=== PATIENT | female | born 1975 | race American Indian/Alaskan Native ===

== ENCOUNTER 2018-09-26 08:10 | Inpatient (IN) | payer MEDICARE ==
[2018-09-24 11:18] LABS: Basophils % (Auto) 0.9 % (0.0-1.8); Eosinophils # (Auto) 0.2 K/mm3 (0.0-0.4); Eosinophils % (Auto) 4.1 % (0.0-4.3); Hematocrit 27.4 % (30.3-42.9); Hemoglobin 9.1 gm/dl (10.1-14.3); Lymphocytes # (Auto) 2.2 K/mm3 (1.2-5.4); Lymphocytes % (Auto) 49.3 % (13.4-35.0); Mean Corpuscular HGB Conc 33 % (30-34); Mean Corpuscular Volume 88 fl (79-97); Monocytes # (Auto) 0.4 K/mm3 (0.0-0.8); Monocytes % (Auto) 8.8 % (0.0-7.3); Platelet Count 268 K/mm3 (140-440); Red Cell Distribution Width 17.5 % (13.2-15.2)
--- NOTE | 2018-09-24 11:34 | Anesthesia Consultation ---
Anesthesia Consult and Med Hx Date of service: 09/24/18 - Airway Anesthetic Teeth Evaluation: Poor (multiple missing), Chipped ROM Head & Neck: Adequate Mental/Hyoid Distance: Adequate Mallampati Class: Class II Intubation Access Assessment: Probably Good - Pulmonary Exam CTA: Yes - Cardiac Exam Cardiac Exam: RRR (click murmur c/w MVP) - Pre-Operative Health Status ASA Pre-Surgery Classification: ASA3 Proposed Anesthetic Plan: General Nerve Block: discussed TAP block - Pulmonary Hx Smoking: No Hx Asthma: Yes Hx Respiratory Symptoms: No SOB: No COPD: No Hx Sleep Apnea: No - Cardiovascular System Hx Hypertension: No Hx Coronary Artery Disease: No - Central Nervous System Hx Psychiatric Problems: No - Gastrointestinal Hx Gastroesophageal Reflux Disease: Yes (s/p Helen X 3) - Hematic Hx Anemia: Yes - Other Systems Hx Cancer: No - Additional Comments Anesthesia Medical History Comments: GA for hernia repair (X2) and Helen (x3), MVP with normal EF and mild TR on Echo 03/2018. prior transfusion X2 in 2016;. likely needs RSI given esophageal surgery and recurrent GERD
--- NOTE | 2018-09-25 14:22 | History and Physical Report ---
History of Present Illness Date of examination: 09/24/18 Date of admission: 09/26/2018 Chief complaint: dysfunctional bleeding History of present illness: 43y/o with dysfunctional uterine bleeding and uterine fibroids. The patient reports pain with her menses. Ultrasound findings suggest small leiomyomas. The patient desires surgical management. Past History Past Medical History: asthma, GERD Past Surgical History: other (Helen fundoplication; hernia repair, tubal ligation) Social history: - Obstetrical History : 3 Para: 3 Hx # Term Pregnancies: 3 Number of Pregnancies: 0 Spontaneous Abortions: 0 Induced : 0 Number of Living Children: 3 Medications and Allergies Allergies Allergy/AdvReac Type Severity Reaction Status Date / Time clams Allergy Unknown Verified 09/20/18 16:01 kiwi Allergy Anaphylaxis Verified 09/20/18 16:01 ez Allergy Anaphylaxis Verified 09/20/18 16:01 methylprednisolone sodium Allergy Anaphylaxis Verified 09/20/18 16:01 succinate [From Solu-Medrol] peach Allergy Anaphylaxis Verified 09/20/18 16:01 peanut Allergy Anaphylaxis Verified 09/20/18 16:01 scallops Allergy Unknown Verified 09/20/18 16:01 sesame seed Allergy Unknown Verified 09/20/18 16:01 shrimp Allergy Unknown Verified 09/20/18 16:01 soybean Allergy Unknown Verified 09/20/18 16:01 strawberry Allergy Anaphylaxis Verified 09/20/18 16:01 walnut Allergy Unknown Verified 09/20/18 16:01 watermelon Allergy Unknown Verified 09/20/18 16:01 wheat Allergy Unknown Verified 09/20/18 16:01 cod fish Allergy Unknown Uncoded 09/20/18 16:01 egg white Allergy Unknown Uncoded 09/20/18 16:01 Home Medications Medication Instructions Recorded Confirmed Last Taken Type Albuterol Sulfate [Ventolin Hfa] 2 puff IH Q4H PRN 09/20/18 09/20/18 Unknown History Cetirizine HCl [ZyrTEC] 10 mg PO DAILY 09/20/18 09/20/18 Unknown History Fluticasone/Salmeterol [Advair 2 puff IH BID 09/20/18 09/20/18 Unknown History 500-50 Diskus] Ranitidine HCl [Zantac 150 MG TAB] 150 mg PO DAILY PRN 09/20/18 09/20/18 Unknown History Review of Systems All systems: negative Genitourinary: vaginal bleeding, pelvic pain - Vital Signs Vital signs: Vital Signs Temp Pulse Resp BP Pulse Ox 97.6 F 69 20 122/80 99 09/24/18 10:50 09/24/18 10:50 09/24/18 10:50 09/24/18 10:50 09/24/18 10:50 Temp Pulse Resp BP Pulse Ox 97.6 F 69 20 122/80 99 09/24/18 10:50 09/24/18 10:50 09/24/18 10:50 09/24/18 10:50 09/24/18 10:50 - Physical Exam Breasts: Positive: deferred Cardiovascular: Regular rate Lungs: Positive: Clear to auscultation Abdomen: Positive: other (multiple surgical incisions) Results Result Diagrams: 09/24/18 11:00 All other labs normal. Assessment and Plan - Patient Problems (1) DUB (dysfunctional uterine bleeding) Status: Acute Plan to address problem: will proceed with a PATRICIA (2) Dysmenorrhea Status: Acute (3) Anemia Status: Acute (4) Leiomyoma Status: Acute
[~2018-09-26 08:10] MED LIST: ANCEF/STERILE WATER 2 GM/20 ML 2 GM/20 ML SYRINGE IV NR; NACL 0.9% 500 ML 500 ML IV ONE
[2018-09-26] MEDS ORDERED: NACL 0.9% 1000 ML 1,000 ML ONE ×2 (09:06→14:05)
[2018-09-26] MEDS ORDERED: DECADRON ONE ×2 (09:32→10:43)
[2018-09-26] MEDS ORDERED: MARCAINE-EPI/PF 0.5%-1:200,000 INFILTRATI ONE (09:32)
[2018-09-26] MEDS ORDERED: VERSED ONE (09:33)
[2018-09-26] MEDS ORDERED: NEURONTIN ONE (09:33)
[2018-09-26] MEDS ORDERED: PEPCID ONE (09:34)
[2018-09-26] MEDS ORDERED: NACL 0.9% 1000 ML 1,000 ML IV SCH (10:00)
[2018-09-26] MEDS ORDERED: NACL 0.9% 500 ML 500 ML IV NR (10:11)
[2018-09-26] MEDS ORDERED: ACD-A 500 ML IV ONE (10:13)
[2018-09-26] MEDS ORDERED: XYLOCAINE MPF 2% ONE (10:43)
[2018-09-26] MEDS ORDERED: ROBINUL ONE (10:43)
[2018-09-26] MEDS ORDERED: DILAUDID ONE ×2 (10:43→13:59)
[2018-09-26] MEDS ORDERED: ZEMURON IV ONE (10:43)
[2018-09-26] MEDS ORDERED: BLOXIVERZ ONE (10:43)
[2018-09-26] MEDS ORDERED: ZOFRAN ONE (10:43)
[2018-09-26] MEDS ORDERED: DIPRIVAN 10 MG/ML IV ONE (10:43)
[2018-09-26] MEDS ORDERED: NACL 0.9% IR ONE (11:59)
--- NOTE | 2018-09-26 13:00 | Operative Report ---
Operative Report Operative Report: Date: 09/26/2018 Preoperative diagnosis: Dysfunctional uterine bleeding; anemia Postoperative diagnosis: Same as above Procedure: Total abdominal hysterectomy Surgeon: Evette Hsu M.D. Pattern Vault Clerk: Sharath Vines Anesthesia: Gen. endotracheal anesthesia Estimated blood loss: 200 mL Urine output: 250 mL IV fluids: 1400 mL Indication: 43-year-old with a history of dysfunctional uterine bleeding. The patient had developed anemia secondary to her menorrhagia has elected to undergo definitive surgical management. Pathology: Uterus, cervix Findings: Mildly enlarged uterus with normal tubes and ovaries bilaterally Procedure: The risk and benefits and indications of the procedure were reviewed with the patient and informed consent was obtained the patient was taken to the operating room. The patient was placed in supine position and given general anesthesia. The patient was prepped and draped in a normal sterile fashion. A Pfannenstiel skin incision was made down to the layer of the fascia which was nicked in the midline and extended laterally with the Bovie cautery. Superior aspect of the rectus fascia was grasped with Washington clamps 2 and the rectus muscles off sharply. This was performed in an inferior fashion as well. The rectus muscle in the midline and the peritoneum entered bluntly. The pelvis was examined with the following findings default value. An O'Carlos-O'Penn retractor was placed into the incision and the bowel packed away with moist laparotomy sponges. 2 Velasquez clamps were placed on the cornua and used for retraction. The round ligaments on both sides were clamped transected and suture ligated with 0 Vicryl. The anterior leaf of the broad ligament was then incised along the bladder reflection to the midline from both sides the bladder was then gently dissected off the lower uterine segment and the cervix with a sponge stick. The infundibulopelvic ligament on both sides were doubly clamped transected and suture ligated with 0 Vicryl. Hemostasis was assured. The uterine vessels were then skeletonized bilaterally clamped with Richard clamps transected and suture ligated with 0 Vicryl. The uterosacral ligaments were clamped similarly on both sides transected and suture ligated. The cervix and the uterus were then amputated from the vaginal cuff. The vaginal cuff edges were closed with a Richard fixation stitch and interrupted [id number] stitches in the midline with 0 Vicryl. The pelvis was then copiously irrigated with normal saline. Hemoblast was applied to the surgical sites. All laparotomy sponges and instruments were then removed from the abdomen. The peritoneum was then reapproximated with 3-0 Vicryl incorporating the rectus muscle. The fascia was then closed in 0 Vicryl in a running fashion. The skin was then reapproximated with 3-0 Monocryl on a Amrio needle subcuticular fas hion. Across the incision. Dermabond was applied to the incision. All sponge laps and needle counts were correct 2. Patient was then successfully extubated. The patient was taken to the recovery room in stable condition.
[2018-09-26] MEDS ORDERED: MORPHINE IV PRN (13:30)
[2018-09-26] MEDS ORDERED: TYLENOL PO PRN (13:30)
[2018-09-26] MEDS ORDERED: MORPHINE PCA 30MG/30ML IV SCH (14:00)
[2018-09-26] MEDS ORDERED: NARCAN 0.4 MG/1 ML IV PRN (14:00)
[2018-09-26] MEDS ORDERED: MILK OF MAGNESIA PO PRN (14:00)
[2018-09-26] MEDS ORDERED: ZOFRAN IV PRN (14:00)
[2018-09-26] MEDS: DILAUDID IV PRN ×2 (14:00→18:36)
[2018-09-26] MEDS: D5LR 1,000 ML IV SCH (16:31)
[2018-09-26] MEDS: TORADOL IV SCH (20:23)
[2018-09-26] MEDS ORDERED: AMBIEN PO PRN (22:00)
[2018-09-27] MEDS: TORADOL IV SCH ×2 (04:22→11:45)
[2018-09-27] MEDS: D5LR 1,000 ML IV SCH (04:23)
[2018-09-27 05:59] LABS: Hematocrit 25.4 % (30.3-42.9); Hemoglobin 8.4 gm/dl (10.1-14.3)
[2018-09-27] MEDS ORDERED: NARCAN 0.4 MG/1 ML IV PRN (07:57)
--- NOTE | 2018-09-27 08:34 | Progress Note ---
Assessment and Plan - Patient Problems (1) DUB (dysfunctional uterine bleeding) Current Visit: No Status: Acute Plan to address problem: possible side effects from Morphine will discontinue morphine continue O2 supplement until sats improve (2) Dysmenorrhea Current Visit: No Status: Acute (3) Anemia Current Visit: No Status: Acute (4) Leiomyoma Current Visit: No Status: Acute Subjective - Subjective Date of service: 09/27/18 Interval history: Patient experienced an episode of feeling lightheaded when attempting to ambulate. Patient slightly obtunded. O2 sats in mid 80's on RA. Possible effects of [employer] morphine. Patient given Narcan. O2 given with nasal canula. Sats now 96%. CXR pending. EKG normal Patient reports: dizzy ambulation, pain well controlled, no appetite normal, no voiding normally Objective - Vital Signs Latest vital signs: Vital Signs Temp Pulse Pulse Resp BP BP Pulse Ox 09/27/18 07:00 66 18 115/53 93 09/27/18 05:15 98.2 F 60 18 107/61 96 09/27/18 01:01 98.1 F 76 20 104/67 97 09/26/18 21:00 97.9 F 77 18 102/61 96 09/26/18 18:36 14 09/26/18 17:15 98.0 F 68 18 119/71 100 09/26/18 15:09 60 09/26/18 14:45 98.1 F 62 16 123/67 99 09/26/18 14:15 64 13 135/78 100 09/26/18 14:00 62 14 131/79 100 09/26/18 13:45 60 11 L 138/77 100 09/26/18 13:30 96.7 F L 62 11 L 132/73 100 09/26/18 13:25 68 13 136/77 100 09/26/18 13:21 67 14 151/90 100 09/26/18 10:18 18 09/26/18 10:06 76 14 131/69 100 09/26/18 10:01 78 12 141/71 100 09/26/18 09:56 82 15 142/79 100 09/26/18 09:55 97.8 F 74 18 134/76 96 09/26/18 09:51 90 13 147/78 100 09/26/18 08:55 97.8 F 74 18 134/76 96 Intake and Output 09/26/18 09/27/18 09/27/18 22:59 06:59 14:59 Intake Total 1120 Output Total 100 300 Balance -100 820 Intake: IV 1000 D5lr 1,000 ml @ 125 mls/ 1000 hr IV DIRECT STEFFANIE Rx#: [id number] Oral 120 Output: Urine 100 300 Indwelling Catheter 100 300 Other: Total, Intake Amount 120 Total, Output Amount 100 100 Voiding Method Indwelling Catheter # Voids Indwelling Catheter 1 - Exam Abdomen: Present: normal appearance, soft Incision: Present: normal, dry, intact - Labs Labs: Abnormal lab results 09/26/18 09/27/18 Range/Units 09:00 05:22 Hgb 8.4 L (10.1-14.3) gm/dl Hct 25.4 L (30.3-42.9) % Crossmatch See Detail
--- NOTE | 2018-09-27 09:13 | XRay Report ---
AP CHEST :09/27/18 CLINICAL: Dyspnea. One day status post PATRICIA. COMPARISON:None. FINDINGS: The lungs are underexpanded and clear except for very mild streaky opacities in the left lower lobe.The heart and vasculature are normal for the film technique. No tubes or lines. No pneumothorax. The bones and soft tissues are normal. IMPRESSION: Mild left lower lobe subsegmental atelectasis and otherwise normal.
[2018-09-27] MEDS ORDERED: PROVENTIL IH PRN (19:53)
[2018-09-27] MEDS: IBUPROFEN PO PRN (20:46)
[2018-09-27] MEDS: PERCOCET 5/325 PO PRN (22:09)
[2018-09-28] MEDS: BENADRYL PO PRN ×2 (00:23→23:43)
[2018-09-28] MEDS: PERCOCET 5/325 PO PRN ×3 (01:58→21:18)
[2018-09-28] MEDS ORDERED: PROVENTIL IH PRN (08:00)
--- NOTE | 2018-09-28 12:40 | Progress Note ---
Assessment and Plan A/P POD 2 s/p PATRICIA pulse ox normal atelectasis -increase incentive spirometry consider d/c home in am Subjective - Subjective Date of service: 09/28/18 Principal diagnosis: s/p PATRICIA Patient reports: appetite normal, voiding normally, pain well controlled, flatus, ambulating normally Objective - Vital Signs Latest vital signs: Vital Signs Temp Pulse Pulse Pulse Resp Resp BP 09/28/18 11:26 98.0 F 71 18 09/28/18 08:22 97.3 F L 76 18 09/28/18 07:15 72 18 09/28/18 01:58 20 09/28/18 01:38 98.5 F 20 104/56 09/27/18 22:09 18 09/27/18 21:48 98.4 F 18 113/56 09/27/18 20:46 20 09/27/18 20:15 75 20 09/27/18 20:12 09/27/18 20:05 74 20 09/27/18 19:30 66 09/27/18 16:10 98.1 F 71 18 09/27/18 12:52 98.2 F 68 18 BP Pulse Ox 09/28/18 11:26 116/83 96 09/28/18 08:22 118/57 97 09/28/18 07:15 09/28/18 01:58 09/28/18 01:38 09/27/18 22:09 09/27/18 21:48 09/27/18 20:46 09/27/18 20:15 99 09/27/18 20:12 99 09/27/18 20:05 09/27/18 19:30 09/27/18 16:10 117/54 97 09/27/18 12:52 112/74 99 Intake and Output 09/27/18 09/28/18 09/28/18 23:59 07:59 15:59 Output Total 1375 Balance -1375 Output: Urine 1375 Indwelling Catheter 575 Void 800 Other: Total, Output Amount 500 Voiding Method Toilet Toilet # Voids Void 1 - Exam Breasts: Present: normal Cardiovascular: Present: Regular rate, Normal S1 Lungs: Present: Clear to auscultation, Normal air movement Abdomen: Present: normal appearance, soft, normal bowel sounds. Absent: distention, tenderness, guarding Extremities: Present: normal Deep Tendon Reflex Grade: Normal +2 Incision: Present: normal, dry, intact, dressed
[2018-09-28] MEDS ORDERED: MYCOSTATIN TP SCH (18:00)
[2018-09-28] MEDS: IBUPROFEN PO PRN (23:41)
--- NOTE | 2018-09-29 03:51 | Progress Note ---
Assessment and Plan A/P POD 3 s/p PATRICIA pulse ox normal atelectasis -increase incentive spirometry s/p diarrhea resolved after dringking apple juice. d/c home f/u in 2 weeks Subjective - Subjective Date of service: 09/29/18 Principal diagnosis: s/p PATRICIA Patient reports: appetite normal, voiding normally, pain well controlled, flatus, ambulating normally Objective - Vital Signs Latest vital signs: Vital Signs Temp Pulse Pulse Resp BP BP Pulse Ox 09/28/18 23:59 98.7 F 67 18 101/56 97 09/28/18 23:41 18 09/28/18 21:18 20 09/28/18 20:00 74 20 09/28/18 19:53 98.0 F 77 16 116/66 95 09/28/18 15:59 98.3 F 74 18 116/60 94 09/28/18 11:26 98.0 F 71 18 116/83 96 09/28/18 08:22 97.3 F L 76 18 118/57 97 09/28/18 07:15 72 18 09/28/18 06:15 97.8 F 82 20 112/63 97 Intake and Output 09/28/18 09/28/18 09/29/18 15:59 23:59 07:59 Other: Voiding Method Toilet - Exam Breasts: Present: normal Cardiovascular: Present: Regular rate, Normal S1 Lungs: Present: Clear to auscultation, Normal air movement Abdomen: Present: normal appearance, soft, normal bowel sounds. Absent: distention, tenderness, guarding, hernia Uterus: Present: normal, firm, fundal height below umbilicus. Absent: bogginess, tenderness Extremities: Present: normal Incision: Present: normal, dry, intact
--- NOTE | 2018-09-29 03:52 | Discharge Summary ---
Providers - Providers Date of Admission: 09/26/18 08:10 Date of discharge: 09/29/18 Attending physician: MARY BRADEN Primary care physician: HARISH NG Hospitalization Reason for admission: other (scheuled patricia) Delivery: other (open PATRICIA) Procedure: other Episiotomy: none Laceration: none Incision: normal, dry, intact Condition at discharge: Good Disposition: DC-30 STILL A PATIENT Plan - Discharge Medications Prescriptions: Docusate Sodium [Colace] 100 mg PO BID PRN #60 capsule PRN Reason: Constipation Ibuprofen [Motrin] 800 mg PO Q8HR PRN #60 tablet PRN Reason: Pain, Mild (1-3) oxyCODONE /ACETAMINOPHEN [Percocet 5/325] 1 tab PO Q6HR PRN #30 tablet PRN Reason: Pain - Provider Discharge Summary Additional instructions: [] Smoking cessation referral if applicable(refer to patient education folder for contact #) [] Refer to [facility]'s [facility] Booklet Call your doctor immediately for: * Fever > 100.5 * Heavy vaginal bleeding ( >1 pad per hour) * Severe persistent headache * Shortness of breath * Reddened, hot, painful area to leg or breast * Drainage or odor from incision. * Keep incision clean and dry at all times and follow doctor's instructions regarding bathing/showering - Follow up plan Follow up: HARISH NG MD [Primary Care Provider] - 7 Days
[2018-09-29] MEDS: PERCOCET 5/325 PO PRN (04:07)
[2018-09-29 09:19] VITALS: BP 98/59
[2018-09-29] MEDS: IBUPROFEN PO PRN (10:30)
== END 2018-09-29 13:10 | disposition home or self-care (01) | DRG 742 ==
LOC: 3A 08:10 → EDSTATUS 13:00 → OB 14:16
PROVIDERS: ADMIT Obstetrics & Gynecology; ATTEND Obstetrics & Gynecology
PROC: 0UT90ZZ Resection of Uterus, Open Approach (ICD-10-PCS; principal; 2018-09-26)
PROC: 30233N1 Transfusion of Nonautologous Red Blood Cells into Peripheral Vein, Percutaneous Approach (ICD-10-PCS; 2018-09-26)
DX: D25.9 Leiomyoma of uterus, unspecified (principal); J98.11 Atelectasis; R71.0 Precipitous drop in hematocrit; N93.8 Other specified abnormal uterine and vaginal bleeding; K21.9 Gastro-esophageal reflux disease without esophagitis; N94.6 Dysmenorrhea, unspecified; J45.909 Unspecified asthma, uncomplicated; D64.9 Anemia, unspecified; Z98.51 Tubal ligation status; Z91.012 Allergy to eggs; Z91.010 Allergy to peanuts; Z91.018 Allergy to other foods; Z79.899 Other long term (current) drug therapy
CPT/HCPCS: 36415; 64450; 71045; 84703; 85014; 85018; 85025; 86850; 86900; 86901; 86920; 88307; 88341; 88342; 93005; 93010; 94640; 94760; G0378; J0690; J1100; J1170; J1885; J2250; J2270; J2310; J2405; J2704; J2710; J7030; J7121; P9016